=== PATIENT | female | born 1985 | race Hispanic/Latino ===

== ENCOUNTER 2016-09-30 09:16 | Day surgery (SDC) | payer OTHER ==
[2016-09-30 09:52] LABS: ADD MANUAL DIFF? NO
--- NOTE | 2016-09-30 10:06 | CP.SDSHP ---
Same Day Surgery H & P - History Proposed Procedure: renal Bx. Pre-Op Diagnosis: proteinurea/ microscopic hematurea. - Previous Medical/Surgical History Pulmonary: Asthma Endocrine/Metabolic: Renal Disease Neuro: Backaches Pain: 0. No Pain Previous Surgical History: resection of benign liver mass. - Allergies Allergies: Allergies latex Allergy (Intermediate, Verified 09/23/16 07:40) RASH - Physical Exam General Appearance: WNL. Vital Signs: Vital Signs 09/30/16 09:54 Temperature 98 F Pulse Rate 75 Respiratory 20 Rate Blood Pressure 115/67 O2 Sat by Pulse 98 Oximetry Mental Status: Alert & Oriented x3 Neuro: WNL Heart: WNL Lungs: WNL GI: WNL - {Optional Preform as Required} Other Pertinent Findings: hx of melanoma . - Impression Impression: proteinurea /microscopic hemaurea. - Date & Time Date: 09/30/16 Time: 10:06 Short Stay Discharge - Short Stay Discharge Admitting Diagnosis/Reason for Visit: PROTEINURIA N80.9/N31.9/N18.2 Disposition: HOME/ ROUTINE
[2016-09-30 10:08] LABS: BASO # 0.02 K/mm3 (0.0-2.0); BASO % 0.2 % (0.0-3.0); EOS # 0.3 (0.0-0.7); GRAN # 5.16 (1.4-6.5); GRAN % 62.9 % (50.0-68.0); LYMPH # 2.2 (1.2-3.4); LYMPH % 26.3 % (22.0-35.0); MEAN CELL VOLUME 88.8 fL (80.0-105.0); MEAN CORPUSCULAR HEMOGLOBIN 30.2 pg (25.0-35.0); MONO # 0.5 (0.1-0.6); MONO % 6.6 % (1.0-6.0); PLATELET COUNT 191 10^3/uL (120.0-450.0); WHITE BLOOD COUNT 8.2 10^3/ul (4.5-11.0)
[2016-09-30 10:09] LABS: BLOOD UREA NITROGEN 14 mg/dL (7-21); CALCIUM 9.3 mg/dL (8.4-10.5); CARBON DIOXIDE 29 mmol/L (21-33); CHLORIDE 103 mmol/L (98-107); GFR AFRICAN-AMERICAN > 60; GLUCOSE,RANDOM 83 mg/dL (70-110); POTASSIUM 3.8 mmol/L (3.6-5.0); SODIUM 139 mmol/L (132-148)
[2016-09-30 10:15] LABS: PARTIAL THROMBOPLASTIN TIME 27.9 Seconds (23.7-30.8)
[2016-09-30] MEDS ORDERED: Midazolam 2 MG/2 ML VIAL ONE (10:32)
[2016-09-30] MEDS ORDERED: Oxycodone/Acetaminophen 5/325 mg Tab PO PRN (11:18)
[2016-09-30] MEDS ORDERED: Sodium Chloride 0.45% 1,000 ML IV SCH (11:30)
--- NOTE | 2016-09-30 11:51 | CT ---
PROCEDURE: CT guided left renal cortex biopsy. HISTORY: Proteinuria. Hematuria. Evaluate for IgA nephropathy. PHYSICIAN(S): Thor Hernandez MD. TECHNIQUE: The relative risks and indications of the procedure were explained to the patient and consent obtained. The patient was placed prone on the CT scanner and preliminary images through the kidneys obtained. Conscious sedation and monitoring were provided throughout the procedure by a nurse. The limited noncontrast images of the kidneys are unremarkable.. A left posterior approach was selected and the area prepped and draped in the usual sterile fashion. 1% Xylocaine was used to anesthetize the skin and soft tissues. A 17-gauge guiding needle was advanced into the left renal cortex laterally and inferiorly. Its position was confirmed with CT. Using coaxial technique, multiple core biopsies were obtained. The postprocedure images demonstrate a 4 cm posterior hematoma. The patient was asymptomatic and vital signs stable. She will be observed. IMPRESSION: 1. CT-guided left renal cortex biopsy as described above.
[2016-09-30 12:19] VITALS: RESP 18; TEMP 97.9
[2016-09-30 12:21] VITALS: BMI 21.2
[2016-09-30 12:52] VITALS: BP 109/73; PULSE 88; O2SAT 99
== END 2016-09-30 14:40 | disposition home or self-care (01) ==
LOC: SDS 09:16
PROVIDERS: ATTEND Radiology Vascular & Interventional Radiology
DX: N05.8 Unspecified nephritic syndrome with other morphologic changes (principal); N02.8 Recurrent and persistent hematuria with other morphologic changes; R80.9 Proteinuria, unspecified; J45.909 Unspecified asthma, uncomplicated; Z91.040 Latex allergy status
CPT/HCPCS: 36415; 50200; 77012; 80048; 84703; 85025; 85610; 85730; J2250; J2405; J3010; J7030

== ENCOUNTER 2017-05-11 12:00 | Day surgery (SDC) | payer OTHER ==
[2017-05-05 10:15] VITALS: BMI 24.7
[2017-05-11] MEDS ORDERED: Midazolam 2 MG/2 ML VIAL ONE (14:00)
[2017-05-11] MEDS ORDERED: Propofol 10 mg/ml Inj (20 ML) ONE (14:00)
[2017-05-11] MEDS ORDERED: Lidocaine 2% Inj (20ml) ONE (14:00)
[2017-05-11] MEDS ORDERED: Sodium Chloride 0.9% 1,000 ML IV SCH (15:15)
[2017-05-11] MEDS ORDERED: HYDROmorphone 0.5 mg/0.5 ml ISec IVP STA (15:17)
[2017-05-11 15:58] VITALS: O2SAT 99
[2017-05-11 16:22] VITALS: BP 118/76; PULSE 78; RESP 18; TEMP 98.1
== END 2017-05-11 15:10 | disposition home or self-care (01) ==
LOC: SDS 12:00 → EDSTATUS 14:00 → SDS 15:10
PROVIDERS: ATTEND Obstetrics & Gynecology Gynecology
DX: N94.10 Unspecified dyspareunia (principal); N84.0 Polyp of corpus uteri
CPT/HCPCS: 58558; 84703; 88305; J1100; J1170; J2250; J2405; J2704; J3010; J7120

== ENCOUNTER 2018-01-06 12:47 | Emergency (ER) | payer OTHER ==
[2018-01-06 13:06] VITALS: BMI 30.1
[2018-01-06 13:10] VITALS: TEMP 98.6
--- NOTE | 2018-01-06 13:29 | ED PDOC ---
Arrival/HPI - General Chief Complaint: Eye Problem Time Seen by Provider: 01/06/18 13:29 Historian: Patient - History of Present Illness Narrative History of Present Illness (Text): 01/06/18 13:29 This 32 yo female Gravid 22 weeks, A2,with a pmh kidney basement membrane disease, proteinuria, presents to this ED c/o right eye redness x 2 days, back pain x 1 month, and b/l lower leg edema x 2 months. Patient stated she called her [employer] OF [employer]ODUCT [employer] doctor from [place] about her eye redness. [employer]OR OF [employer] told patient to come to ED since she has a high risk and the concern of preeclampsia. Patient stated she feels well otherwise. Patient stated she has a normal vision. Patient denies sob, cp, abdominal pain, pelvic pain, vaginal bleeding, vaginal discharge, Time/Duration: Other (see hpi) Context: Home Past Medical History - Provider Review Nursing Documentation Reviewed: Yes - Infectious Disease Hx of Infectious Diseases: None - Tetanus Immunization Tetanus Immunization: Unknown - Cardiac Hx Pacemaker: No - Neurological Hx Paralysis: No - Renal Hx Renal Disorder: Yes (kidney basement membrane disease) Other/Comment: Kidney disease (Single Membrane Dis) - Hematological/Oncological Hx Blood Transfusions: No Hx Blood Transfusion Reaction: No - Musculoskeletal/Rheumatological Hx Musculoskeletal Disorders: No - Psychiatric Hx Depression: No Hx Substance Use: No - Past Surgical History Past Surgical History: No Previous - Surgical History Other/Comment: Liver Resection, Mole(Melanoma) - Anesthesia Hx Anesthesia: Yes Hx Anesthesia Reactions: No Hx Malignant Hyperthermia: No - Suicidal Assessment Feels Threatened In Home Enviroment: No Family/Social History - Physician Review Nursing Documentation Reviewed: Yes Family/Social History: Other (noncontributory) Smoking Status: Never Smoked Hx Alcohol Use: No Hx Substance Use: No Hx Substance Use Treatment: No Allergies/Home Meds Allergies/Adverse Reactions: Allergies latex Allergy (Unknown, Verified 01/06/18 13:06) RASH Home Medications: Home Meds Medication Instructions Recorded Confirmed Loratadine [Claritin] 10 mg PO DAILY PRN 05/05/17 01/06/18 Vit No.126/Iron/Folic 1 tab PO QPM 05/05/17 01/06/18 [Prenavite] Aspirin [Aspirin Chewable] 81 mg PO DAILY 01/06/18 01/06/18 Review of Systems - Review of Systems Constitutional: Normal. absent: Fatigue, Weight Change, Fevers Eyes: Other (Right eye redness). absent: Vision Changes, Photophobia, Eye Pain ENT: Normal Respiratory: Normal. absent: SOB, Cough Cardiovascular: Edema (b/l leg edema). absent: Chest Pain, Palpitations Gastrointestinal: Normal. absent: Abdominal Pain, Nausea, Vomiting Genitourinary Female: Normal. absent: Dysuria, Frequency, Hematuria, Urine Output Changes, Vaginal Bleeding, Vaginal Discharge Musculoskeletal: Back Pain. absent: Arthralgias, Neck Pain, Joint Swelling, Myalgias Skin: Normal Neurological: Normal Endocrine: Normal Hemo/Lymphatic: Normal Psychiatric: Normal Physical Exam Vital Signs Temp Pulse Resp BP Pulse Ox 01/06/18 13:06 98.6 F 98 H 17 113/73 96 Temperature: Afebrile Blood Pressure: Normal Pulse: Regular Respiratory Rate: Normal Appearance: Positive for: Well-Appearing, Non-Toxic, Comfortable Pain Distress: None Mental Status: Positive for: Alert and Oriented X 3 - Systems Exam Head: Present: Atraumatic, Normocephalic Pupils: Present: PERRL, Other ((+) smal right subconjuctival hemorrhage). No: Non-Reactive Extroacular Muscles: Present: EOMI. No: Entrapment Conjunctiva: Present: Normal Ears: Present: Normal, NORMAL TM, Normal Canal. No: Erythema Mouth: Present: Moist Mucous Membranes, Normal Lips, Normal Tounge, Normal Teeth. No: Drooling, Trismus Pharnyx: Present: Normal. No: ERYTHEMA, EXUDATE, TONSILS ENLARGED Neck: Present: Normal Range of Motion, Trachea Midline. No: Meningeal Signs, MIDLINE TENDERNESS, Paraspinal Tenderness, Lymphadenopathy Respiratory/Chest: Present: Clear to Auscultation, Good Air Exchange. No: Respiratory Distress, Accessory Muscle Use, Wheezes, Retracting, Rhonchi, Tachypneic Cardiovascular: Present: Regular Rate and Rhythm, Normal S1, S2. No: Murmurs Abdomen: Present: Other ((+) Gravid). No: Tenderness, Distention, Peritoneal Signs, Rebound, Guarding, Feeding Tubes Back: Present: Normal Inspection. No: CVA Tenderness, Midline Tenderness, Paraspinal Tenderness, Pain with Leg Raise, Decubitus Ulcer Upper Extremity: Present: Normal Inspection, Normal ROM, NORMAL PULSES, Neurovascularly Intact, Capillary Refill < 2s. No: Cyanosis, Edema Lower Extremity: Present: Normal Inspection, Edema ((+) trace b/l lower leg edema), NORMAL PULSES, Normal ROM, Neurovascularly Intact, Capillary Refill < 2 s. No: CALF TENDERNESS, Darcy's Sign, Tenderness, Swelling, Erythema, Temperature Abnormalties Neurological: Present: GCS=15, CN II-XII Intact, Speech Normal, Motor Func Grossly Intact, Normal Sensory Function, Normal Cerebellar Funct, Gait Normal, Memory Normal Skin: Present: Warm, Dry, Normal Color. No: Rashes Psychiatric: Present: Alert, Oriented x 3, Normal Insight, Normal Concentration Medical Decision Making ED Course and Treatment: 01/06/18 15:43 Re-evaluation. Patient feels better. Discussed results and plan with patient who expresses understanding. All questions answered and there is agreement with the plan to discharge home with instructions. Patient stable for discharge. Return if symptoms persist or worsen. Re-evaluation Time: 15:43 Reassessment Condition: Re-examined, Improved - Lab Interpretations Lab Results: 01/06/18 14:34 01/06/18 14:34 Lab Results 01/06/18 14:34: Sodium 137, Potassium 3.8, Chloride 105, Carbon Dioxide 22, Anion Gap 14, BUN 8, Creatinine 0.6 L, Est GFR ( Amer) > 60, Est GFR (Non -Af Amer) > 60, Random Glucose 126 H, Calcium 9.0, Magnesium 1.8, Total Bilirubin 0.2, AST 28, ALT 54, Alkaline Phosphatase 44, Total Protein 6.2, Albumin 3.6, Globulin 2.7, Albumin/Globulin Ratio 1.3 01/06/18 14:34: Urine Color Yellow, Urine Appearance Clear, Urine pH 6.0, Ur Specific [place] 1.020, Urine Protein Negative, Urine Glucose (UA) Negative, Urine Ketones Negative, Urine Blood Negative, Urine Nitrate Negative, Urine Bilirubin Negative, Urine Urobilinogen 0.2, Ur Leukocyte Esterase Negative 01/06/18 14:34: WBC 12.3 H, RBC 3.80, Hgb 11.2 L, Hct 32.6 L, MCV 85.8, MCH 29.5 , MCHC 34.4, RDW 13.2, Plt Count 211, MPV 10.5, Gran % 78.8 H, Lymph % (Auto) 14.4 L, Holmes % (Auto) 5.6, Eos % (Auto) 1.1 L, Baso % (Auto) 0.1, Gran # 9.67 H , Lymph # (Auto) 1.8, Holmes # (Auto) 0.7 H, Eos # (Auto) 0.1, Baso # (Auto) 0.01 - RAD Interpretation Radiology Orders: 01/06/18 14:01 DUPLEX LOWER EXTRM VEIN BILAT [US] Stat Disposition/Present on Arrival - Present on Arrival Any Indicators Present on Arrival: No History of DVT/PE: No History of Uncontrolled Diabetes: No Urinary Catheter: No History of Decub. Ulcer: No History Surgical Site Infection Following: None - Disposition Have Diagnosis and Disposition been Completed?: Yes Diagnosis: Subconjunctival hemorrhage of right eye, Bilateral leg edema, , Back pain Disposition: HOME/ ROUTINE Disposition Time: 15:45 Patient Plan: Discharge Condition: IMPROVED Additional Instructions: Call private [employer] doctor for follow up visit in 1-2 days. you may need further outpatient tests. Continue with home medication. return to emergency if symptoms worsen. Referrals: Jasper Munroe MD [Primary Care Provider] - Follow up with primary Forms: [facility] ([place]ian), WORK NOTE
[2018-01-06 14:42] LABS: BASO # 0.01 K/mm3 (0.0-2.0); BASO % 0.1 % (0.0-3.0); EOS # 0.1 (0.0-0.7); EOS % 1.1 % (1.5-5.0); GRAN # 9.67 (1.4-6.5); GRAN % 78.8 % (50.0-68.0); HEMOGLOBIN 11.2 g/dL (12.0-16.0); LYMPH # 1.8 (1.2-3.4); LYMPH % 14.4 % (22.0-35.0); MEAN CELL VOLUME 85.8 fl (80.0-105.0); MEAN CORPUSCULAR HEMOGLOBIN 29.5 pg (25.0-35.0); MEAN CORPUSCULAR HGB CONC 34.4 g/dl (31.0-37.0); MEAN PLATELET VOLUME 10.5 fl (7.0-11.0); MONO # 0.7 (0.1-0.6); MONO % 5.6 % (1.0-6.0); RBC 3.8 10^6/uL (3.5-6.1); RED CELL DISTRIBUTION WIDTH 13.2 % (11.5-14.5); WHITE BLOOD COUNT 12.3 10^3/ul (4.5-11.0)
[2018-01-06 14:50] LABS: URINE BILIRUBIN NEGATIVE (NEGATIVE); URINE BLOOD NEGATIVE (NEGATIVE); URINE GLUCOSE (UA) NEGATIVE (NEGATIVE); URINE LEUKOCYTE ESTERASE NEGATIVE Leu/uL (NEGATIVE); URINE PROTEIN NEGATIVE mg/dL (<30 mg/dL); URINE UROBILINOGEN 0.2 E.U./dL (<1 E.U./dL)
[2018-01-06 14:56] LABS: URINE APPEARANCE CLEAR (CLEAR); URINE COLOR YELLOW (YELLOW)
[2018-01-06 15:03] LABS: ALB/GLOB RATIO 1.3 (1.1-1.8); ALBUMIN 3.6 g/dL (3.0-4.8); ALT/SGPT 54 U/L (7-56); AST/SGOT 28 U/L (14-36); BLOOD UREA NITROGEN 8 mg/dL (7-21); GFR AFRICAN-AMERICAN > 60; GFR NON-AFRICAN AMERICAN > 60
--- NOTE | 2018-01-06 15:24 | US ---
HISTORY: Leg pain and swelling. Evaluate for DVT PHYSICIAN(S): Thor Hernandez MD. TECHNIQUE: Duplex sonography and color-flow Doppler with graded compression were used to evaluate the deep venous systems of both lower extremities. The exam is somewhat limited by body habitus. FINDINGS: The visualized deep venous systems of both lower extremities are sonographically normal and compressible. Normal wave forms and augmentation are seen. There is no sonographic evidence for deep venous thrombosis in the visualized segments of both lower extremities. IMPRESSION: No sonographic evidence for deep venous thrombosis in the visualized segments of both lower extremities.
[2018-01-06 16:11] VITALS: BP 117/74; PULSE 87; RESP 18; O2SAT 99
== END 2018-01-06 16:10 | disposition home or self-care (01) ==
LOC: ED 12:47
DX: O12.02 Gestational edema, second trimester (principal); H11.31 Conjunctival hemorrhage, right eye; M54.9 Dorsalgia, unspecified; Z3A.22 22 weeks gestation of pregnancy

== ENCOUNTER 2018-10-18 10:17 | Outpatient (CLI) | payer OTHER | END 2018-10-18 10:18 | disposition home or self-care (01) | LOC: LAB 10:17 ==